=== PATIENT | male | born 1995 | race Hispanic/Latino ===

== ENCOUNTER 2025-05-03 09:45 | Outpatient (CLI) | payer BC | END 2025-05-03 09:46 | disposition home or self-care (01) | LOC: CSHSLEEP 09:45 | PROVIDERS: ATTEND Internal Medicine Critical Care Medicine | DX: G47.33 Obstructive sleep apnea (adult) (pediatric) (principal); R06.83 Snoring | CPT/HCPCS: 95800 ==